=== PATIENT | male | born 1995 | race Two or more races ===

== ENCOUNTER 2018-11-17 17:13 | Emergency (ER) | payer MEDICAID ==
[~2018-11-17] VITALS: Ht 175.3 cm; Wt 86.0 kg
[2018-11-17 18:21] LABS: BG BASE EXCESS -2.3 mmol/L (-2.0-2.0); BG CARBOXYHEMOGLOBIN 5.6 % (0.5-1.5); BG DEOXYHEMOGLOBIN 2.2 % (0.0-5.0); BG FRACTION INSPIRED OXYGEN 21; BG HCO3 ACT 21.3 mmol/L (22.0-26.0); BG METHEMOGLOBIN 0.4 % (0.0-1.5); BG OXYGEN SATURATION 97.7 % (92.0-98.5); BG OXYHEMOGLOBIN 91.8 % (94.0-97.0); BG PCO2 33.9 mmHg (35.0-45.0); BG PH 7.417 (7.350-7.450); BG PO2 96.6 mmHg (75.0-100.0); BG SAMPLE SITE RIGHT RADIAL; BG TOTAL HEMOGLOBIN 15.6 g/dL (12.0-18.0); BG VENT MODE ROOM AIR
[2018-11-17 22:12] VITALS: BP 125/70
== END 2018-11-17 22:15 | disposition home or self-care (01) ==
LOC: ER 17:13
DX: T58.91XA Toxic effect of carbon monoxide from unspecified source, accidental (unintentional), initial encounter (principal); R55 Syncope and collapse; Z88.0 Allergy status to penicillin; Y92.89 Other specified places as the place of occurrence of the external cause
CPT/HCPCS: 36600; 82375; 82805; 99283

== ENCOUNTER 2019-03-10 17:20 | Emergency (ER) | payer MEDICAID ==
[~2019-03-10] VITALS: Ht 175.3 cm; Wt 91.0 kg
[2019-03-10] MEDS ORDERED: IBUPROFEN 600MG TABLET PO ONE (20:00)
[2019-03-10 20:40] VITALS: BP 129/81
== END 2019-03-10 20:44 | disposition home or self-care (01) ==
LOC: ER 17:20
DX: S61.212A Laceration without foreign body of right middle finger without damage to nail, initial encounter (principal); W22.8XXA Striking against or struck by other objects, initial encounter; Y93.89 Activity, other specified; Y92.89 Other specified places as the place of occurrence of the external cause; R05 Cough; R09.89 Other specified symptoms and signs involving the circulatory and respiratory systems
CPT/HCPCS: 99283

== ENCOUNTER 2019-10-06 07:16 | Emergency (ER) | payer MEDICAID ==
[~2019-10-06] VITALS: Ht 175.3 cm; Wt 91.0 kg
[2019-10-06 07:23] VITALS: BP 133/88
[2019-10-06] MEDS ORDERED: FLUORESCEIN SODIUM 1MG/STRIP BOTHEYE ONE (08:30)
== END 2019-10-06 10:25 | disposition home or self-care (01) ==
LOC: ER 07:16
DX: H57.89 Other specified disorders of eye and adnexa (principal)
CPT/HCPCS: 99283

== ENCOUNTER 2021-03-12 16:30 | Emergency (ER) | payer MEDICAID ==
[~2021-03-12] VITALS: Ht 175.3 cm; Wt 100.0 kg
[2021-03-12] MEDS ORDERED: SODIUM CHLORIDE 0.9% 1,000 ML IV ONE (17:00)
[2021-03-12 17:50] LABS: HEMATOCRIT. 50.8 % (42.0-52.0); HEMOGLOBIN. 17.4 g/dL (14.0-18.0); MEAN CORPUSCULAR VOLUME 87.8 fL (80.0-94.0); MEAN PLATELET VOLUME 8.4 fl (7.4-10.4); PLATELET 286 x1000/uL (130-400); RED BLOOD CELL COUNT 5.79 mill/uL (4.7-6.1); RED CELL DISTRIBUTION WIDTH 12.8 % (11.6-14.6)
[2021-03-12 17:57] LABS: CHLORIDE 107 mEq/L (98-107)
[2021-03-12 18:30] LABS: CLARITY URINE CLOUDY (CLEAR); COLOR URINE DARK YELLOW (YELLOW); KETONES URINE 3+ (NEGATIVE); LEUKOCYTE ESTERASE URINE NEGATIVE (NEGATIVE); NITRITE URINE NEGATIVE (NEGATIVE); OCCULT BLOOD URINE NEGATIVE (NEGATIVE); PROTEIN URINE 2+ (NEGATIVE); SPECIFIC GRAVITY URINE 1.034 (1.005-1.030); UROBILINOGEN URINE 0.2 E.U./dL (0.2-1.0)
[2021-03-12 18:47] LABS: PLATELET ESTIMATE NORMAL
[2021-03-12] MEDS ORDERED: ONDA4TAB5 MT (20:50)
[2021-03-12] MEDS ORDERED: SULF1TAB48 MT (20:59)
[2021-03-12 21:11] VITALS: BP 151/78
== END 2021-03-12 21:15 | disposition home or self-care (01) ==
LOC: ER 16:30
DX: N39.0 Urinary tract infection, site not specified (principal); D72.829 Elevated white blood cell count, unspecified; Z88.0 Allergy status to penicillin
CPT/HCPCS: 36415; 80053; 81003; 83690; 85025; 99283; J7030